=== PATIENT | female | born 1950 | race Caucasian/White ===

== ENCOUNTER 2017-11-08 10:25 | Emergency (ER) | payer OTHER ==
[2017-11-08] VITALS (9 sets, daily range): BP systolic 98–119; BP diastolic 40–51; PULSE 71–76; RESP 16–18; TEMP 97.2–98.9; O2SAT 97–99
[~2017-11-08] VITALS: Ht 162.6 cm; Wt 54.5 kg
[~2017-11-08 10:25] MED LIST: MEVA40TA PO; ZOLO20CO PO
[2017-11-08] MEDS ORDERED: SODIUM CHLOR 0.9% 1000 ML INJ 1,000 ML IV ONE ×2 (10:51→12:30)
--- NOTE | 2017-11-08 10:55 | PD ---
HPI Chief Complaint: Syncope/Near-Syncope Time Seen by Provider: 10:42 Travel History International Travel<30 days: No Contact w/Intl Traveler<30days: No Traveled to known affect area: No History of Present Illness HPI 67yo F with no significant PMH presents to the ED with c/o episode of syncope today. Said she woke up and was not feeling so well but went to [employer]. There , she felt hot, clammy and a little nauseous. She was sitting down when she felt lightheaded and said she passed out for 10 seconds and he had his arms around her so she did not hit her head. She said it was hot in the room. Currently denies any symptoms. Denies any fever, chest pain, sob, n/v, abdominal pain, diarrhea, focal weakness or numbness. Pt said her blood pressure is lower than usual today. PFSH Past Medical History Hx Anticoagulant Therapy: No Depression: Yes Cancer: No Cardiovascular Problems: No High Cholesterol: Yes Chemotherapy: No Cerebrovascular Accident: No Diabetes: No Diminished Hearing: No Endocrine: No Hepatitis: No Immune Disorder: No Psychiatric: No Respiratory: No Immunizations Current: Yes Thyroid Disease: No ?: Not Past Surgical History AICD: No Section: Yes Gynecologic Surgery: Yes (C-SECT. CYST BREAST) Hysterectomy: No Joint Replacement: No Pacemaker: No Other Surgery: Yes (RT KNEE) Social History Alcohol Use: Yes (4-5 WEEKS) Tobacco Use: No Substance Use: No Allergies-Medications (Allergen,Severity, Reaction): Coded Allergies: No Known Allergies (Unverified Adverse Reaction, Unknown, 11/08/17) Reported Meds & Prescriptions Reported Meds & Active Scripts Active Reported Lovastatin 40 Mg Tab 40 Mg PO HS Sertraline (Sertraline HCl) 25 Mg Tab 25 Mg PO HS Review of Systems Except as stated in HPI: all other systems reviewed are Neg Physical Exam Narrative GENERAL: 67yo F not in distress. SKIN: Focused skin assessment warm/dry. HEAD: Atraumatic. Normocephalic. EYES: Pupils equal and round at 3mm bilaterally. EOMI. +Horizontal nystagmus, diagnosed 10 years ago. ENT: No nasal bleeding or discharge. Mucous membranes pink and moist. NECK: Trachea midline. No JVD. CARDIOVASCULAR: Regular rate and rhythm. No murmur appreciated. RESPIRATORY: No accessory muscle use. Clear to auscultation. Breath sounds equal bilaterally. GASTROINTESTINAL: Abdomen soft, non-tender, nondistended. MUSCULOSKELETAL: No obvious deformities. No clubbing. No cyanosis. No edema. NEUROLOGICAL: Awake and alert. No obvious cranial nerve deficits. Motor grossly within normal limits. Normal speech. PSYCHIATRIC: Appropriate mood and affect; insight and judgment normal. Data Data Last Documented VS Vital Signs Date Time Temp Pulse Resp B/P (MAP) Pulse Ox O2 Delivery O2 Flow Rate FiO2 11/08/17 14:22 98.9 74 16 105/47 (66) 97 Room Air Orders Orders Electrocardiogram (11/08/17 10:51) Basic Metabolic Panel (Bmp) (11/08/17 10:51) Comprehensive Metabolic Panel (11/08/17 10:51) Magnesium (Mg) (11/08/17 10:51) Troponin I (11/08/17 10:51) Blood Glucose (11/08/17 10:51) Sodium Chlor 0.9% 1000 Ml Inj (Ns 1000 M (11/08/17 10:51) Orthostatic Vital Signs (11/08/17 10:51) Complete Blood Count With Diff (11/08/17 11:38) Sodium Chlor 0.9% 1000 Ml Inj (Ns 1000 M (11/08/17 12:30) Influenzae A/B Antigen (11/08/17 12:16) Ed Discharge Order (11/08/17 14:23) Labs Laboratory Tests Test 11/08/17 11:05 White Blood Count 11.9 TH/MM3 Red Blood Count 3.92 MIL/MM3 Hemoglobin 11.8 GM/DL Hematocrit 35.7 % Mean Corpuscular Volume 91.2 FL Mean Corpuscular Hemoglobin 30.2 PG Mean Corpuscular Hemoglobin Concent 33.1 % Red Cell Distribution Width 11.7 % Platelet Count 226 TH/MM3 Mean Platelet Volume 7.8 FL Neutrophils (%) (Auto) 92.6 % Lymphocytes (%) (Auto) 4.1 % Monocytes (%) (Auto) 2.8 % Eosinophils (%) (Auto) 0.2 % Basophils (%) (Auto) 0.3 % Neutrophils # (Auto) 11.1 TH/MM3 Lymphocytes # (Auto) 0.5 TH/MM3 Monocytes # (Auto) 0.3 TH/MM3 Eosinophils # (Auto) 0.0 TH/MM3 Basophils # (Auto) 0.0 TH/MM3 CBC Comment DIFF FINAL Differential Comment Blood Urea Nitrogen 15 MG/DL Creatinine 0.68 MG/DL Random Glucose 143 MG/DL Total Protein 6.5 GM/DL Albumin 3.3 GM/DL Calcium Level 8.2 MG/DL Magnesium Level 1.9 MG/DL Alkaline Phosphatase 52 U/L Aspartate Amino Transf (AST/SGOT) 20 U/L Alanine Aminotransferase (ALT/SGPT) 18 U/L Total Bilirubin 0.2 MG/DL Sodium Level 138 MEQ/L Potassium Level 3.9 MEQ/L Chloride Level 106 MEQ/L Carbon Dioxide Level 24.1 MEQ/L Anion Gap 8 MEQ/L Estimat Glomerular Filtration Rate 86 ML/MIN Troponin I LESS THAN 0.02 NG/ML MDM Medical Decision Making Medical Screen Exam Complete: Yes Emergency Medical Condition: Yes Interpretation(s) EKG: NSR 72bpm. LAD. Q wave V2. No significant ST segment elevation or depression. QTc 422ms. Differential Diagnosis Dehydration vs. arrhythmia vs. vasovagal syncope Narrative Course 67yo F with episode of syncope. Pt denies any chest pain, sob, and denies any symptoms now. Pt has been ambulating in the ED and denies any dizziness or weakness. BP was low so pt given NS IVF. Said she does feel better now. Labs reviewed, WBC 11.9. H/H normal. Troponin negative. Influenza negative. Pt is well appearing but I do not have a reason for the low blood pressure. Offered observation versus outpatient follow up and pt prefer outpatient follow up. She is very reliable and her will bring her back if anything happens. Pt instructed to follow up with primary care physician tomorrow. Return precautions given. Diagnosis Primary Impression: Syncope Qualified Codes: R55 - Syncope and collapse Patient Instructions: General Instructions Departure Forms: Tests/Procedures Additional Instructions: Please follow up with your primary care physician tomorrow for evaluation of low blood pressure and syncope. Return to the ED immediately if you passed out again or if symptoms worsen. Med/Other Pt SpecificInfo: No Change to Meds Disposition: 01 DISCHARGE HOME Condition: Stable Josselyn Barnes Nov 08, 2017 10:55
[2017-11-08 11:20] LABS: CHLORIDE 106 MEQ/L (98-107); SODIUM (NA) 138 MEQ/L (136-145)
[2017-11-08 11:23] LABS: ALBUMIN 3.3 GM/DL (3.4-5.0); BICARBONATE 24.1 MEQ/L (21.0-32.0); CALCIUM 8.2 MG/DL (8.5-10.1); GLUCOSE,RANDOM 143 MG/DL (74-106); MAGNESIUM 1.9 MG/DL (1.5-2.5)
[2017-11-08 11:24] LABS: BLOOD UREA NITROGEN 15 MG/DL (7-18)
[2017-11-08 11:27] LABS: ALT (GPT) 18 U/L (10-53); AST (GOT) 20 U/L (15-37); CREATININE 0.68 MG/DL (0.50-1.00); GLOMERULAR FILTRATION RATE 86 ML/MIN (>89)
[2017-11-08] MEDS ORDERED: LOVA40TA PO (11:27)
[2017-11-08] MEDS ORDERED: SERT25TA83 PO (11:27)
[2017-11-08 11:28] LABS: TOTAL BILIRUBIN ADULT 0.2 MG/DL (0.2-1.0); TOTAL PROTEIN 6.5 GM/DL (6.4-8.2)
[2017-11-08 11:29] LABS: ALKALINE PHOSPHATASE 52 U/L (45-117)
[2017-11-08 11:32] LABS: TROPONIN I LESS THAN 0.02 NG/ML (0.02-0.05)
[2017-11-08 11:46] LABS: AUTOMATED NEUTROPHIL # 11.1 TH/MM3 (1.8-7.7); BASOPHIL % 0.3 % (0.0-2.0); EOSINOPHIL % 0.2 % (0.0-4.0); HEMATOCRIT 35.7 % (35.0-46.0); HEMOGLOBIN 11.8 GM/DL (11.6-15.3); LYMPH % 4.1 % (9.0-44.0); LYMPHOCYTE # 0.5 TH/MM3 (1.0-4.8); MEAN CELL VOLUME 91.2 FL (80.0-100.0); MEAN CORPUSCULAR HEMOGLOBIN 30.2 PG (27.0-34.0); MEAN CORPUSCULAR HGB CONC 33.1 % (32.0-36.0); MEAN PLATELET VOLUME 7.8 FL (7.0-11.0); MONO % 2.8 % (0.0-8.0); MONOCYTE # 0.3 TH/MM3 (0-0.9); NEUT % 92.6 % (16.0-70.0); PLATELET COUNT 226 TH/MM3 (150-450); RED BLOOD COUNT 3.92 MIL/MM3 (4.00-5.30); RED CELL DISTRIBUTION WIDTH 11.7 % (11.6-17.2); WHITE BLOOD COUNT 11.9 TH/MM3 (4.0-11.0)
--- NOTE | 2017-11-09 23:09 | EKG ---
Date Performed: 11/08/2017 Time Performed: 10:56:07 PTAGE: 67 years EKG: Sinus rhythm MARKED LEFT AXIS DEVIATION POSSIBLE RIGHT VENTRICULAR CONDUCTION DELAY SEPTAL MYOCARDIAL INFARCTION ABNORMAL ECG NO PREVIOUS TRACING DOCTOR: Richar Mcfadden Interpretating Date/Time 11/09/2017 23:06:16
== END 2017-11-08 14:57 | disposition home or self-care (01) ==
LOC: PHED 10:25
DX: R55 Syncope and collapse (principal); R42 Dizziness and giddiness; R94.31 Abnormal electrocardiogram [ECG] [EKG]; F32.9 Major depressive disorder, single episode, unspecified; E78.00 Pure hypercholesterolemia, unspecified
CPT/HCPCS: 80053; 83735; 84484; 85025; 87804; 93005; 96360; 96361; 99284; J7030

== ENCOUNTER 2017-11-11 12:23 | Emergency (ER) | payer OTHER ==
[~2017-11-11] VITALS: Ht 165.1 cm; Wt 67.0 kg
[~2017-11-11 12:23] MED LIST changes: +LOVA40TA PO; -MEVA40TA PO; +SERT25TA83 PO; -ZOLO20CO PO
[2017-11-11 12:38] VITALS: BP 155/96; PULSE 87; RESP 16; TEMP 98.3; O2SAT 98
[2017-11-11] MEDS ORDERED: SODIUM CHLOR 0.9% 1000 ML INJ 1,000 ML IV ONE (14:19)
--- NOTE | 2017-11-11 14:26 | PD ---
HPI Chief Complaint: Cold / Flu Symptoms Time Seen by Provider: 14:11 Travel History International Travel<30 days: No Contact w/Intl Traveler<30days: No Traveled to known affect area: No History of Present Illness HPI 67 y/o female presents with near syncopal event today while she was out shopping. She states she has been fine since she was discharged until earlier today. She states she did not lose consciousness today but she was afraid that she was going to pass out. She states she is not having any tingling or weakness or cough and she states she did not tell triage that. She is here with her who brought her here. She denies any other concurrent complaints. Quality was lightheaded episode. She states she feels better now but is concerned that she has had 2 episodes within a short time frame she had a passout episode on the fourth. PFSH Past Medical History Hx Anticoagulant Therapy: No Anxiety: Yes Depression: Yes Cancer: No Cardiovascular Problems: No High Cholesterol: Yes Chemotherapy: No Cerebrovascular Accident: No Diabetes: No Diminished Hearing: No Endocrine: No Hepatitis: No Immune Disorder: No Psychiatric: No Respiratory: No Immunizations Current: Yes Thyroid Disease: No Menopausal: Yes Past Surgical History AICD: No Section: Yes (x 1) Eye Surgery: Yes (cataract surgery right eye, lasik both eyes) Gynecologic Surgery: Yes ( CYST REMOVED TO RT BREAST) Joint Replacement: No Pacemaker: No Other Surgery: Yes (RT KNEE) Social History Alcohol Use: Yes (occas. mix drinks) Tobacco Use: No Substance Use: No Allergies-Medications (Allergen,Severity, Reaction): Coded Allergies: No Known Allergies (Unverified Adverse Reaction, Unknown, 11/11/17) Reported Meds & Prescriptions Reported Meds & Active Scripts Active Reported Lovastatin 40 Mg Tab 40 Mg PO HS Sertraline (Sertraline HCl) 25 Mg Tab 25 Mg PO HS Review of Systems Except as stated in HPI: all other systems reviewed are Neg Physical Exam Narrative GENERAL: 67 y/o female who is in no apparent distress SKIN: Focused skin assessment warm/dry. HEAD: Atraumatic. Normocephalic. EYES: Pupils equal and round. No scleral icterus. No injection or drainage. ENT: No nasal bleeding or discharge. Mucous membranes pink and moist. NECK: Trachea midline. No JVD. CARDIOVASCULAR: Regular rate and rhythm. No murmur appreciated. RESPIRATORY: No accessory muscle use. Clear to auscultation. Breath sounds equal bilaterally. GASTROINTESTINAL: Abdomen soft, non-tender, nondistended. Hepatic and splenic margins not palpable. MUSCULOSKELETAL: No obvious deformities. No clubbing. No cyanosis. No edema. NEUROLOGICAL: Awake and alert. No obvious cranial nerve deficits. Motor grossly within normal limits. Normal speech. PSYCHIATRIC: Appropriate mood and affect; insight and judgment normal. Data Data Last Documented VS Vital Signs Date Time Temp Pulse Resp B/P (MAP) Pulse Ox O2 Delivery O2 Flow Rate FiO2 11/11/17 15:30 68 16 140/60 (86) 99 Room Air 11/11/17 12:38 98.3 Orders Orders Electrocardiogram (11/11/17 14:19) Complete Blood Count With Diff (11/11/17 14:19) Comprehensive Metabolic Panel (11/11/17 14:19) Magnesium (Mg) (11/11/17 14:19) Act Partial Throm Time (Ptt) (11/11/17 14:19) Prothrombin Time / Inr (Pt) (11/11/17 14:19) Urinalysis - C+S If Indicated (11/11/17 14:19) Chest, Single Ap (11/11/17 14:19) Ecg Monitoring (11/11/17 14:19) Iv Access Insert/Monitor (11/11/17 14:19) Oximetry (11/11/17 14:19) Sodium Chloride 0.9% Flush (Ns Flush) (11/11/17 14:30) Sodium Chlor 0.9% 1000 Ml Inj (Ns 1000 M (11/11/17 14:19) Ed Discharge Order (11/11/17 15:58) Labs Laboratory Tests Test 11/11/17 14:35 11/11/17 15:25 White Blood Count 5.2 TH/MM3 Red Blood Count 4.01 MIL/MM3 Hemoglobin 12.4 GM/DL Hematocrit 36.7 % Mean Corpuscular Volume 91.5 FL Mean Corpuscular Hemoglobin 30.8 PG Mean Corpuscular Hemoglobin Concent 33.6 % Red Cell Distribution Width 11.9 % Platelet Count 248 TH/MM3 Mean Platelet Volume 7.1 FL Neutrophils (%) (Auto) 74.1 % Lymphocytes (%) (Auto) 18.9 % Monocytes (%) (Auto) 6.0 % Eosinophils (%) (Auto) 0.3 % Basophils (%) (Auto) 0.7 % Neutrophils # (Auto) 3.9 TH/MM3 Lymphocytes # (Auto) 1.0 TH/MM3 Monocytes # (Auto) 0.3 TH/MM3 Eosinophils # (Auto) 0.0 TH/MM3 Basophils # (Auto) 0.0 TH/MM3 CBC Comment DIFF FINAL Differential Comment Prothrombin Time 11.2 SEC Prothromb Time International Ratio 1.1 RATIO Activated Partial Thromboplast Time 25.2 SEC Blood Urea Nitrogen 10 MG/DL Creatinine 0.63 MG/DL Random Glucose 109 MG/DL Total Protein 7.4 GM/DL Albumin 3.8 GM/DL Calcium Level 9.3 MG/DL Magnesium Level 2.2 MG/DL Alkaline Phosphatase 52 U/L Aspartate Amino Transf (AST/SGOT) 26 U/L Alanine Aminotransferase (ALT/SGPT) 26 U/L Total Bilirubin 0.2 MG/DL Sodium Level 139 MEQ/L Potassium Level 4.0 MEQ/L Chloride Level 107 MEQ/L Carbon Dioxide Level 25.6 MEQ/L Anion Gap 6 MEQ/L Estimat Glomerular Filtration Rate 94 ML/MIN Urine Color YELLOW Urine Turbidity CLEAR Urine pH 6.0 Urine Specific [place] 1.009 Urine Protein NEG mg/dL Urine Glucose (UA) NEG mg/dL Urine Ketones 15 mg/dL Urine Occult Blood TRACE Urine Nitrite NEG Urine Bilirubin NEG Urine Leukocyte Esterase NEG Urine WBC 0-2 /hpf Urine Squamous Epithelial Cells 0-5 /hpf Microscopic Urinalysis Comment CULT NOT INDICATED MDM Medical Decision Making Medical Screen Exam Complete: Yes Emergency Medical Condition: Yes Medical Record Reviewed: Yes (pmh confirmed, recent syncope visit reviewed) Interpretation(s) CBC & BMP Diagram 11/11/17 14:35 Total Protein 7.4 #, Albumin 3.8, Calcium Level 9.3, Magnesium Level 2.2, Alkaline Phosphatase 52, Aspartate Amino Transf (AST/SGOT) 26, Alanine Aminotransferase (ALT/SGPT) 26, Total Bilirubin 0.2 Differential Diagnosis anemia, vasovagal, renal failure.... Narrative Course will check labs, ua, cxr and dose with ivf and reeval patient states has follow up tommorrow, labs normal, Patient denies any new complaints, all questions answered. Patient knows that follow up is incumbent on them and to return to the emergency room immediately if new or worsening symptoms develop. Patient given strict return precautions, vitals reviewed and are normal, agrees to further workup as an outpatient. Diagnosis Primary Impression: Near syncope Patient Instructions: General Instructions Additional Instructions: return as needed, follow with primary tommorrow as scheduled, keep hydrated Med/Other Pt SpecificInfo: No Change to Meds Disposition: 01 DISCHARGE HOME Condition: Stable Myla Lambert MD Nov 11, 2017 14:26
[2017-11-11] MEDS ORDERED: SODIUM CHLORIDE 0.9% FLUSH 10 ML FLUSH IVF PRN (14:30)
[2017-11-11 14:55] LABS: AUTOMATED NEUTROPHIL # 3.9 TH/MM3 (1.8-7.7); BASOPHIL % 0.7 % (0.0-2.0); EOSINOPHIL % 0.3 % (0.0-4.0); HEMATOCRIT 36.7 % (35.0-46.0); HEMOGLOBIN 12.4 GM/DL (11.6-15.3); LYMPH % 18.9 % (9.0-44.0); MEAN CELL VOLUME 91.5 FL (80.0-100.0); MEAN CORPUSCULAR HEMOGLOBIN 30.8 PG (27.0-34.0); MEAN CORPUSCULAR HGB CONC 33.6 % (32.0-36.0); MEAN PLATELET VOLUME 7.1 FL (7.0-11.0); MONOCYTE # 0.3 TH/MM3 (0-0.9); NEUT % 74.1 % (16.0-70.0); PLATELET COUNT 248 TH/MM3 (150-450); RED BLOOD COUNT 4.01 MIL/MM3 (4.00-5.30); RED CELL DISTRIBUTION WIDTH 11.9 % (11.6-17.2); WHITE BLOOD COUNT 5.2 TH/MM3 (4.0-11.0)
--- NOTE | 2017-11-11 15:00 | RADRPT ---
EXAM DATE/TIME: 11/11/2017 14:29 [facility] COMPARISON: No previous studies available for comparison. INDICATIONS : Syncopal episode. Patient states she was just discharged from ED 3 days ago. MEDICAL HISTORY : Hypercholesterolemia. SURGICAL HISTORY : section. ORIF right arm. Arthroscopic right knee. ENCOUNTER: [facility] ACUITY: 1 day PAIN SCORE: 0/10 LOCATION: chest FINDINGS: Heart is mildly prominent. The pulmonary vascular pattern is normal. The lungs are clear. Degenerativ e changes and scoliosis of the thoracic spine are noted. CONCLUSION: Mild cardiomegaly. No focal infiltrate or pulmonary vascular congestion. Degenerative changes and sco liosis of the thoracic spine. Felix Leyva MD on November 11, 2017 at 14:56 Board Certified Radiologist. This report was verified electronically.
[2017-11-11 15:16] LABS: CHLORIDE 107 MEQ/L (98-107); SODIUM (NA) 139 MEQ/L (136-145)
[2017-11-11 15:18] VITALS: RESP 16; O2SAT 97
[2017-11-11 15:30] VITALS: BP 140/60; PULSE 68; RESP 16; O2SAT 99
[2017-11-11 15:42] LABS: BILIRUBIN, URINE NEG (NEG); BLOOD, URINE TRACE (NEG); GLUCOSE,URINE NEG (NEG); KETONE, URINE 15 mg/dL (NEG); NITRITE,URINE NEG (NEG); URINE LEUKOCYTE ESTERASE NEG (NEG)
[2017-11-11 15:47] LABS: ALBUMIN 3.8 GM/DL (3.4-5.0); ALKALINE PHOSPHATASE 52 U/L (45-117); ALT (GPT) 26 U/L (10-53); AST (GOT) 26 U/L (15-37); BICARBONATE 25.6 MEQ/L (21.0-32.0); BLOOD UREA NITROGEN 10 MG/DL (7-18); CALCIUM 9.3 MG/DL (8.5-10.1); CREATININE 0.63 MG/DL (0.50-1.00); GLOMERULAR FILTRATION RATE 94 ML/MIN (>89); GLUCOSE,RANDOM 109 MG/DL (74-106); INTERNATIONAL NORMALIZED RATIO 1.1 RATIO; MAGNESIUM 2.2 MG/DL (1.5-2.5); PROTHROMBIN TIME - PATIENT 11.2 SEC (9.8-11.6); TOTAL BILIRUBIN ADULT 0.2 MG/DL (0.2-1.0); TOTAL PROTEIN 7.4 GM/DL (6.4-8.2)
[2017-11-11 15:49] LABS: URINE COLOR YELLOW (YELLW/STRAW)
[2017-11-11 15:50] LABS: SQUAMOUS EPITHELIAL CELL URINE 0-5 /hpf (0-5); WBC, URINE 0-2 /hpf (0-5)
[2017-11-11 16:30] VITALS: BP 140/62
--- NOTE | 2017-11-12 20:25 | EKG ---
Date Performed: 11/11/2017 Time Performed: 14:27:19 PTAGE: 67 years EKG: Sinus rhythm LOW QRS VOLTAGE IN PRECORDIAL LEADS SEPTAL MYOCARDIAL INFARCTION ABNORMAL ECG Since the prior tracin g, there has been no significant change PREVIOUS TRACING : 11/08/2017 10.56 DOCTOR: Yunior Gandhi Interpretating Date/Time 11/12/2017 20:20:30
== END 2017-11-11 16:44 | disposition home or self-care (01) ==
LOC: PHED 12:23
DX: R55 Syncope and collapse (principal); E78.00 Pure hypercholesterolemia, unspecified; F41.9 Anxiety disorder, unspecified; F32.9 Major depressive disorder, single episode, unspecified; Z79.899 Other long term (current) drug therapy
CPT/HCPCS: 71045; 80053; 81001; 83735; 85025; 85610; 85730; 93005; 96360; 99285; J7030